=== PATIENT | female | born 1940 | race Two or more races ===

== ENCOUNTER → 2018-04-09 | Day surgery (SDC) | payer OTHER ==
[~2018-04-09] MED LIST: DOLOGESIC 500-1 EACH PO; LOSART PO; VERAPAMIL ER240 MG PO; [UNRECOGNIZED DRUG - OTHER] PO
== END | disposition home or self-care (01) ==
LOC: ADM 03-31 09:45 → CIR.AMB 04-02 09:45
DX: M51.06 Intervertebral disc disorders with myelopathy, lumbar region (principal); M47.16 Other spondylosis with myelopathy, lumbar region; M47.817 Spondylosis without myelopathy or radiculopathy, lumbosacral region